=== PATIENT | male | born 1990 | race Caucasian/White ===

== ENCOUNTER 2021-06-19 17:49 | Emergency (ER) | payer BC, SELFPAY ==
--- NOTE | ~2021-06-19 | XR_ITS ---
EXAMINATION: XR abdomen/kub 1V DATE: 06/19/2021 19:59 INDICATION: 2 days of abdominal pain. TECHNIQUE: A supine view of the abdomen on 2 radiographs was obtained. COMPARISON: None. FINDINGS: Small to moderate amount of gas scattered throughout the normal-appearing colon. No dilated gas-fille d loops of bowel to suggest obstruction. No organomegaly or suspicious calcifications right-sided hyp oplastic riblet at T12. In the abdomen or pelvis. Visualized portions of the lung bases are clear. IMPRESSION: 1. Normal bowel gas pattern. Reviewed, dictated and finalized at location A.
[2021-06-19 18:21] VITALS: BP 135/89; PULSE 94; RESP 18; TEMP 36.8; O2SAT 99
[2021-06-19 18:43] LABS: Basophils Absolute Auto 0.1 K/mm3 (0.0-0.1); Basophils Percent Auto 0.6 % (0.2-1.2); Eosinophils Absolute Auto 0.1 K/mm3 (0-0.3); Eosinophils Percent Auto 1.4 % (0-4.4); Hemoglobin 16.2 g/dL (14.0-18.0); Immature Granulocyte Absolute 0.04 K/mm3 (0.00-0.031); Immature Granulocyte Percent A 0.5 % (0-0.5); Lymphocytes Absolute Auto 1.75 K/mm3 (0.9-3.2); Lymphocytes Percent Auto 20.6 % (18.3-44.2); Mean Corpuscular HGB Conc 34.5 g/dl (32-36); Mean Corpuscular Hemoglobin 31.8 pg (26-34); Mean Corpuscular Volume 92.3 fl (80-100); Monocytes Absolute Auto 0.6 K/mm3 (0.1-0.6); Monocytes Percent Auto 6.8 % (2.6-8.5); Neutrophils Absolute Auto 5.9 K/mm3 (1.3-6.7); Neutrophils Percent Auto 70.1 % (45.5-73.1); Platelet Count Result 275 k/mm3 (150-375); Red Blood Count 5.09 M/mm3 (4.6-6.20); Red Cell Distribution Width 12.1 % (11.5-14.5); White Blood Count 8.5 K/mm3 (4.5-10.0)
[2021-06-19 18:53] LABS: Add Urine Microscopic? YES; Appearance Urine Clear (Clear); Bilirubin Urine Negative (Negative); Blood Urine Negative (Negative); Color Urine Amber (Yellow); Glucose Urine UA Negative (Negative); Ketones Urine 1+ mg/dL (Negative); Leukocyte Esterase Ur Negative LEU/UL (Negative); Mucus Urine Heavy /lpf; Nitrate Urine Negative (Negative); Protein Urine 2+ mg/dL (Negative); WBC Urine 0-3 /hpf
[2021-06-19 18:55] LABS: Alanine Aminotransferase 43 U/L (4-50); Alkaline Phosphatase 82 U/L (38-126); Anion Gap 11 mmol/L (8-16); Aspartate Amino Transferase 73 U/L (17-59); Bilirubin,Total 0.7 mg/dL (0.2-1.3); Blood Urea Nitrogen 11 mg/dL (9-20); Calcium 9.4 mg/dL (8.4-10.2); Carbon Dioxide 23 mmol/L (22-30); Chloride 107 mmol/L (98-107); Estimated CRCL calculation 105 ml/min; Estimated Glomerular Filt Rate > 60; Glucose 90 mg/dL (65-110); Lipase 38 U/L (23-300); Potassium 4.1 mmol/L (3.4-5.0); Sodium 141 mmol/L (137-145)
[2021-06-19 19:00] LABS: Specific Grav Ur 1.033 (1.001-1.035)
[2021-06-19 19:28] VITALS: BP 126/88; PULSE 78; RESP 18; O2SAT 98
--- NOTE | 2021-06-19 20:45 | ED.ABDPAIN ---
HPI - Abdominal Pain General Chief Complaint: Abdominal Pain Stated Complaint: ABD PAIN Time Seen by Provider: 06/19/21 19:20 Source: patient Mode of arrival: ambulatory Limitations: no limitations History of Present Illness HPI narrative: Patient presents with chief complaint of pain to the lower abdominal area that he noticed after lifting weights at the gym 2 days ago. Patient states that he noticed that the pain presents when he is bearing down such as trying to have a bowel movement, coughing or laughing. Patient states he has had an inguinal hernia in the past on the left side lower than the area of discomfort at this time. He denies any fevers, constant pain, vomiting. He denies any constipation or blood or mucus in his stool. Related Data Home Medications Medication Instructions Recorded Confirmed Adults Multivitamin 06/19/21 06/19/21 atorvastatin 40 mg PO DAILY 06/19/21 trazodone 50 mg PO HS 06/19/21 Allergies Allergy/AdvReac Type Severity Reaction Status Date / Time No Known Allergies Allergy Unknown Verified 06/19/21 19:33 Review of Systems Review of Systems: CONSTITUTIONAL: Denies fever, chills, or sweats. EYES: Denies visual changes, redness, or discharge. ENT: Denies rhinorrhea, congestion, sore throat, or otalgia. CARDIOVASCULAR: Denies chest pain, palpitations, or edema. RESPIRATORY: Denies cough or dyspnea. GASTROINTESTINAL: Reports intermittent abdominal pain denies nausea, vomiting, or diarrhea. GENITOURINARY: Denies dysuria or hematuria. SKIN: Denies rash or itching. MUSCULOSKELETAL: Denies back pain, joint pain, or myalgia. NEUROLOGIC: Denies headache, numbness, dizziness, or weakness. PSYCHIATRIC: Denies anxiety or depression. Exam Narrative: GENERAL: Well-appearing, well-nourished, and in no acute distress. HEAD: Normocephalic, atraumatic. EYES: PERRLA and EOMI. CHEST: Clear to auscultation. No respiratory distress. No wheezes rales or rhonchi HEART: Regular rate and rhythm. No murmur heard. Normal peripheral pulses. ABDOMEN: Soft, tender with deep palpation below umbilicus, nondistended, normal active bowel sounds. EXTREMITIES: Normal range of motion. No edema. SKIN: Warm, dry, no rash. NEURO: No focal deficits. Alert and oriented x3. PSYCH: Normal mood and affect. Course Vital Signs Vital signs: Vital Signs Temperature 98.3 F 06/19/21 18:21 Pulse Rate 94 06/19/21 18:21 Respiratory Rate 18 06/19/21 18:21 Blood Pressure 135/89 06/19/21 18:21 Pulse Oximetry 99 06/19/21 18:21 Temperature 98.3 F 06/19/21 18:21 Pulse Rate 78 06/19/21 19:28 Respiratory Rate 18 06/19/21 19:28 Blood Pressure 126/88 06/19/21 19:28 Pulse Oximetry 98 06/19/21 19:28 MDM - Abdominal Pain MDM Narrative Medical decision making narrative: Cussed with patient that he show signs of having abdominal wall hernia. Patient instructed that he needs to soften his stools to avoid straining. Patient needs to avoid heavy lifting and other activities prescription for pressure on the abdominal core. Patient states that he may use a abdominal support belt if he finds it comforting. Patient instructed to follow-up with his primary care for further investigation into his symptoms. He is instructed to return to emergency department immediately if he has any signs of incarcerated hernia or any other emergent symptoms. Patient has been able to eat and drink without vomiting. He has not had nausea or mucus in the stools. Patient is hemodynamically stable and labs are appropriate. KUB does not show any signs of bowel obstruction. Differential Diagnosis Differential diagnosis: Likely abdominal pain, acute appendicitis, calculus of kidney, constipation, diverticulitis, endometriosis, gastroenteritis, pancreatitis and small bowel obstruction Lab Data Result diagrams: 06/19/21 18:32 06/19/21 18:32 Labs: Lab Results 06/19/21 06/19/21 06/19/21 Range/Units 18:32
[2021-06-19 21:06] VITALS: BP 115/74; PULSE 79; RESP 16; TEMP 37; O2SAT 94
== END 2021-06-19 21:08 | disposition home or self-care (01) ==
PROVIDERS: Emergency Medicine; Emergency Provider Emergency Medicine; PCP Internal Medicine
DX: K43.9 Ventral hernia without obstruction or gangrene (principal); S39.011A Strain of muscle, fascia and tendon of abdomen, initial encounter; X50.0XXA Overexertion from strenuous movement or load, initial encounter; Y93.B3 Activity, free weights
CPT/HCPCS: 36415; 74018; 80053; 81001; 83690; 85025; 99283

== ENCOUNTER 2021-12-18 14:31 | Emergency (ER) | payer BC, SELFPAY ==
--- NOTE | ~2021-12-18 | XR_ITS ---
EXAMINATION: XR chest 2V 12/18/2021 15:19 INDICATION: Cough and congestion with sore throat PROCEDURE: 2 view chest COMPARISON: No prior studies for comparison. FINDINGS: The lungs are clear. There is mild hyperinflation. The cardiomediastinal silhouette is with in normal limits. There are no pleural effusions. There is no pneumothorax suspected. IMPRESSION: 1: NO ACUTE CARDIOPULMONARY DISEASE. Reviewed, dictated and finalized at location A.
[2021-12-18 14:51] VITALS: BP 130/86; PULSE 74; RESP 16; TEMP 36.6; O2SAT 97
--- NOTE | 2021-12-18 15:50 | ED.URI ---
HPI - URI/Sore Throat General Chief Complaint: Upper Respiratory Infection Stated Complaint: cough, congestion Time Seen by Provider: 12/18/21 15:25 History of Present Illness HPI Narrative: 31 y/o male presents to the ER today for worsening cough and chest congestion over the past week. He started a z pack on Wednesday but symptoms did not improve. He says cough is productive. He is bringing up brownish phlegm. He has some mild nasal congestion and sore throat. He has not had any fever. He is not short of breath but gets into coughing fits with exertion. He has wheezing. No vomiting diarrhea. No significant medical history. Related Data Home Medications Medication Instructions Recorded Confirmed Adults Multivitamin 06/19/21 06/19/21 atorvastatin 40 mg PO DAILY 06/19/21 trazodone 50 mg PO HS 06/19/21 tacrolimus TOPICAL 12/18/21 12/18/21 Allergies Allergy/AdvReac Type Severity Reaction Status Date / Time No Known Allergies Allergy Unknown Verified 12/18/21 14:50 Review of Systems Constitutional: Constitutional: Denies chills, Denies fatigue, Denies fever(s) and Denies weakness Eyes: Eyes: Reports no additional eye complaints and Denies change in vision ENT: Denies dizziness, Reports nasal congestion and Reports sore throat Cardiovascular: Cardiovascular: Denies chest pain Respiratory: Respiratory: Reports chest congestion, Reports cough, Denies dyspnea and Reports wheezing Gastrointestinal: Gastrointestinal: Denies diarrhea, Denies nausea and Denies vomiting Genitourinary: Genitourinary: Reports no additional male genitourinary complaints Musculoskeletal: Musculoskeletal: Denies myalgias and Denies arthralgias Integumentary/Breasts: Skin/Breast: Denies rash Neurologic: Reports system reviewed and no additional complaints, except as documented Psychiatric: Psychiatric: Reports no additional psychiatric complaints Endocrine: Endocrine: Reports no additional endocrine complaints Hematologic/Lymphatic: Hematologic/Lymphatic: Reports no additional hematologic/lymphatic complaints Allergic/Immunologic: Allergic/Immunologic: Reports no additional allergic/immunologic complaints Exam Const: General: healthy appearing and no acute distress Orientation/consciousness: patient oriented x3 HENMT: Head: normal to inspection Eyes: Conjunctivae: conjunctivae normal Neck: Neck: normal visual inspection Chest: Chest palpation & inspection: normal inspection of the chest Resp: Effort & Inspection: normal respiratory effort and not labored Auscultation: wheezes expiratory wheezes and throughout Cardio: Rate: regular rate Rhythm: regular rhythm GI: GI Palp: Yes Soft to palpation, No Tenderness to palpation present (GI) and No Guarding due to palpation present (GI) Auscultation: normal bowel sounds Skin: General skin exam: normal color Rashes: rash noted Neuro: General: patient oriented x3, moves all extremities and no meningeal signs Extrem: General: normal to inspection Psych: Mental Status: mental status grossly normal Affect: normal affect Attitude: cooperative Course Reevaluation(s) Reevaluation #1: wheezing improved after neb treatment Date: 12/18/21 Time: 16:50 Vital Signs Vital signs: Vital Signs Temperature 36.6 C 12/18/21 14:51 Pulse Rate 74 12/18/21 14:51 Respiratory Rate 16 12/18/21 14:51 Blood Pressure 130/86 12/18/21 14:51 Pulse Oximetry 97 12/18/21 14:51 Temperature 36.6 C 12/18/21 14:51 Pulse Rate 74 12/18/21 14:51 Respiratory Rate 16 12/18/21 14:51 Blood Pressure 130/86 12/18/21 14:51 Pulse Oximetry 97 12/18/21 14:51 MDM - URI/Sore Throat Imaging Data Radiologist's impression: CXR - no pneumonia Discharge Plan Discharge Clinical Impression: Acute bronchitis Qualifiers: Bronchitis organism: unspecified organism Qualified Code(s): J20.9 - Acute bronchitis, unspecified Patient Disposition: Home, Self-Care Condition: Stable I
[2021-12-18] MEDS: predniSONE 20 MG TABLET 60 MG PO (15:58)
[2021-12-18] MEDS: IPRATROPIUM BR 0.02% INH SOLN 0.5 MG/2.5 ML VIAL INHALATION (16:00)
[2021-12-18] MEDS: ALBUTEROL SULFATE NEB 2.5 MG/0.5 ML INH 5 MG INHALATION (16:01)
[2021-12-18 17:28] VITALS: BP 130/84; PULSE 87; RESP 16; O2SAT 98
== END 2021-12-18 17:28 | disposition home or self-care (01) ==
PROVIDERS: Emergency Provider Nurse Practitioner Family; PCP Internal Medicine
DX: J20.9 Acute bronchitis, unspecified (principal)
CPT/HCPCS: 71046; 94640; 99283; J7512

== ENCOUNTER 2024-10-22 16:27 | Emergency (ER) | payer BC, SELFPAY ==
--- NOTE | ~2024-10-22 | XR_ITS ---
EXAMINATION: XR chest 2V Exam Date/Time: 10/22/2024 17:00 [facility] HISTORY: chest pain Comparison: 12/18/2021. RESULT: Lines, tubes, and devices: None. Lungs and pleura: Clear. Cardiomediastinal silhouette: Stable. Other: No acute osseous or upper abdominal finding. IMPRESSION: No acute cardiopulmonary process. Reviewed, dictated and finalized at location [facility]
--- NOTE | 2024-10-22 16:29 | ECG_ITS ---
Test Date: 2024-10-22 16:34:26 Measurements Intervals [place] Rate: 69 P: 61 MA: 137 QRS: -37 QRSD: 102 T: 46 QT: 366 QTc: 394 Interpretive Statements SINUS RHYTHM MARKED LEFT AXIS DEVIATION [QRS AXIS < -30] No previous ECG available for comparison Electronically Signed On 10-22-2024 22:01:01 TIE TAPE MACHINE OPERATOR by Jeyson Donnelly M.D.
--- OUTSIDE RECORDS SUMMARY | 2024-10-22 16:29 | XMS_ITS | Clinical Summary ---
Author Organization [facility] Address [address] [place] [address] Care Team Providers Care Flour Blender Name Role Phone Unavailable Primary Care Provider Unavailabl e Source Comments [facility],non-owned Affiliates and Associated Physician Practices is amultiple site organization consisting of ambulatory clinics and hospital sitesin [place], [place] and [place]. This disclosure is being madepursuant to the Care Everywhere program and may not contain all information available regarding this patient. Last updated 18.[facility] Social History Tobacco Use Types Packs/Day Years Used Date Smoking Tobacco: Never Assessed Sex and Gender Information Value Date Recorded Sex Assigned at Not on file Gender Identity Not on file Sexual Orientation Not on file Plan of Treatment Health Maintenance Due Date Last Done Comments HIV SCREENING 2003 HEPATITIS C SCREENING 03/28/2006 DTAP/TDAP/TD VACCINES (1 - Tdap) 2007 HEPATITIS B VACCINE (1 of 3 - 19+ 3-dose series) 2007 COVID-19 VACCINE ( - 2023-2 5 season) 2024 INFLUENZA VACCINE (#1) 2024 DEPRESSION SCREENING 09/27/2024 ZOSTER VACCINE (1 of 2) 2038 HIB VACCINE Aged Out No longer eligi ble based on patient's age to complete this topic HPV VACCINE Aged Out No longer eligi ble based on patient's age to complete this topic MENINGOCOCCAL (Group B) VACCINE Aged Out No longer eligible based on patient's age to complete this topic MENINGOCOCCAL VACCINE Aged Out No teresita lance eligible based on patient's age to complete this topic PNEUMOCOCCAL VACCINE Aged Out No long er eligible based on patient's age to complete this topic
--- OUTSIDE RECORDS SUMMARY | 2024-10-22 16:29 | XMS_ITS | Referral Summary ---
Author Organization [facility] Address [address] [place] [address] Care Team Providers Care Glue Maker Bone Name Role Phone Unavailable Primary Care Provider Unavailabl e Source Comments [facility],non-owned Affiliates and Associated Physician Practices is amultiple site organization consisting of ambulatory clinics and hospital sitesin [place], [place], [place] and [place]. This disclosure is being madepursuant to the Care Everywhere program and may not contain all information available regarding this patient. Last updated 18.[facility] Social History Tobacco Use Types Packs/Day Years Used Date Smoking Tobacco: Never Assessed Sex and Gender Information Value Date Recorded Sex Assigned at Not on file Gender Identity Not on file Sexual Orientation Not on file Plan of Treatment Not on file
--- OUTSIDE RECORDS SUMMARY | 2024-10-22 16:29 | XMS_ITS | Continuity of Care Document ---
Author Organization [facility] Address [address] [place] [address] Phone Care Team Providers Care Appeals Writer Name Role Phone Conversion MD, Doctor Unavailable Unavailabl e Medications Medication Instructions Dosage Effective Dates (start - stop) Status Comments ALBUTEROL 90MCG PUFFS 2 Q 4HR - Acti ve ALBUTEROL 90MCG PUFFS 2 Q 4HR - Acti ve Advance Directives Directive Yes / No Effective Date File Name No Information Encounters Encounter Description Practice Location Reason(s) For Visit Diagnoses Date Provider Providers Copied on Encounter [facility], [address], [place], [place], [id number], tel:[phone] Conversion Department No Information 4201 1 Conversion Doctor. [address] [place] [address], [facility], . [facility], [address], [place], [place], [id number], tel:[phone] [facility] NOS [phone] Conversion Doctor. [address] [place] [address], [facility], . Family History Family Member Type Diagnosis Age At Onset No Information Immunizations Vaccine Date Status Comments 78679 - Hepatitis_B administered Source: Source Unspecified 24930 - Hepatitis_B administered Source: Source Unspecified Payers Payer name Insurance type Covered green party ID Authoriza tion(s) No Information Social History Type Description Quantity Date Captured Comments Sex Male Smoking Status No Information Chief Complaint And Reason For Visit No Information Reason For Referral Reason For Referral No Information History Of Present Illness Encounter Date Complaint History Of Prese nt Illness No Information Functional Status Date Functional Assessmen t No Information Instructions Date Instruction Additional Infor mation No Information Assessments Type Assessment Date No Information Patient Care Teams Name Effective Dates (start - stop) Status Members No Information
--- OUTSIDE RECORDS SUMMARY | 2024-10-22 16:29 | XMS_ITS | Data Portability ---
Author Organization [place] [facility] [place], Main Office Address [address] [place] [address] Care Team Providers Care [employer]o [employer] Founder Name Role Phone THEODORE SIDDIQUI Primary Care Provider THEODORE SIDDIQUI Referring Provider Assessment Encounter Date Assessment Date Assessment LastModified by Organization Details LastModified Time 09/07/2023 09/07/2023 03/10/2023: LDL 108 Not available 09/05/2023 18:40:01 03/14/2024 03/14/2024 03/10/2023: LDL 108 09/18/2024: [facility], not sent when done by [facility] so reviewed 03/14/2024 Gluc 104 Not available 03/14/2024 10:36:47 Plan of Treatment Reminders Order Date Submit Date Provider Last Modified By Organization Details Last Modified Time Details Appointments None recorded. Lab vitamin D, 25-hydroxy, total, serum 2022 023 [facility] (Lab), [address] [place], [address], 3 11:46:28 lipid panel, serum 2022 023 [facility] (Lab), [address] [place], [address], 3 11:46:27 CBC w/ auto diff 2022 023 [facility] (Lab), [address] [place], [address], 3 11:46:27 CMP, serum or plasma 2022 023 [facility] (Lab), [address] [place], [address], 3 11:46:27 TSH, serum or plasma 2022 023 [facility] (Lab), [address] [place], [address], 3 11:46:27 vitamin D, 25-hydroxy, total, serum 2022 023 [email or web address] [address] [place] [address] (Lab), [address] [place], [address], 4 10:36:28 lipid panel, serum [address] (Lab), [address] [place], [address], 4 10:36:28 CBC w/ auto diff [address] [facility] [address] [place] [address] (Lab), [address] [place], [address], 4 10:36:28 CMP, serum or plasma [email or web address] (Lab), [address] [place], [address], 4 10:36:28 TSH, serum or plasma [address] (Lab), [address] [place], [address], 4 10:36:28 glycohemogl obin, total, blood [email or web address] (Lab), [address] [place], [address], 4 09:47:58 microalbumi n, urine [address] (Lab), [address] [place], [address], 4 09:47:58 vitamin D, 25-hydroxy, total, serum [address] (Lab), [address] [place], [address], 4 09:51:19 rapid strep group A, throat [address] [facility], [address] [place], [address], 4 08:53:19 rapid flu (A+B) [address] [facility], [address] [place], [address], 4 08:53:19 SARS CoV 2 RNA (COVID-19), QL, sales market leader-PCR, respiratory specimen [address] [facility], [address] [place], [address], 4 08:53:19 lipid panel, serum [address] (Lab), [address] [place], [address], 4 09:51:19 CBC w/ auto diff [address] (Lab), [address] [place], [address], 4 09:51:19 CMP, serum or plasma 2023 024 [email or web address] 6 [facility] (Lab), [address] [place], [address], 4 09:51:19 TSH, serum or plasma 2023 024 [email or web address] 6 [facility] (Lab), [address] [place], [address], 4 09:51:[address] referral 2022 023 [email or web address] José Joy MD, [address] [place] [address], [address], 4 10:20:[address] referral 2022 023 [email or web address] 6 José Joy MD, [address] [place] [address], [address], 4 09:03:[address] referral 2023 024 [email or web address] José Joy MD, [address] [place] [address], [address], 4 16:54:01 Procedures None recorded. Surgeries None recorded. Imaging None recorded. Medication Orders tacrolimus 0.1 % topical ointment 2022 023 [facility], [address] [place], [address], 3 09:28:31 tacrolimus 0.1 % topical ointment 2022 023 [facility], [address] [place], [address], 3 09:28:17 amoxicillin 875 mg-david morales clavulanate 125 mg tablet 2023 024 [facility], [address] [facility], [place], [address], 10:14:43 Patient TargetsNo targets recorded. Patient InstructionsNo instructions recorded. Reason for Referral [employer] Referral for E ruption Referring Physician: Theodore Siddiqui, Internal Medicine, Encounter Date: 03/10/2023 [employer] Referral for E ruption Referring Physician: Theodore Siddiqui Internal Medicine, Encounter Date: 09/07/2023 [employer] Referral for E ruption Referring Physician: Theodore Siddiqui, Internal Medicine, Encounter Date: 03/14/2024 Results Created Date Observation Date Name Description Value Unit Range Abnormal Flag Note LastModifiedBy Organization Detail LastModifiedTime 03/14/20 24 03/14/2024 RAPID STREP A DNA strep A DNA, FRANCHESCA NEGATI VE negati ve Not Available [facility] (Lab) [address] [place], [address], 03/14/2024 12:13:29 03/14/20 24 03/14/2024 COVID -19, INFLU FELIX A+B, PCR sars-cov-2 RNA(covid19) ,RT-PCR NEGATI VE This test has been autho rized by the FDA under an Emerg ency Use Autho rizat ion (EUA) for use by autho rized labor atori es. Negat juana resul ts do not precl ude SARS- CoV-2 and shoul d not be used as the sole basis for treat ment or other patie nt manag ement decis ions. Test resul ts shoul d be corre lated with the clini vijay histo ry, epide miolo gical data, and other data avail able to the clini debbie evalu ating the patie nt. Gisela e gayathri w the Fact Sheet s for healt h care provi ders and patie nts at the [facility] simone: https ://ww w.fda .gov/ media /0449 12/do wnloa d https ://ww w.fda .gov/ media /7298 13/do wnloa d Garett liu y: Real- Time RT-PC R Not Available [facility] (Lab) [address] [facility] [place], [address], 03/14/2024 12:21:52 03/14/20 24 03/14/2024 COVID -19, INFLU FELIX A+B, PCR influenza A RNA, RT-PCR NEGATI VE Not Available [facility] (Lab) [address] [place], [address], 03/14/2024 12:21:52 03/14/20 24 03/14/2024 COVID -19, INFLU FELIX A+B, PCR influenza B RNA, RT-PCR NEGATI VE Not Available [facility] (Lab) [address] [place], [address], 03/14/2024 12:21:52 07/21/20 22 XR, hand, 3 or more view No observ ation record ed. [id number] [facility] [place] [address], [place], [address], 11/25/2022 05:04:24 Result Notes None recorded. Problems Name Problem SNOMED Code Status Onset Date Resolution Date Notes Provider Name and Address Organization Details Recorded Time Hyperlipid emia 82122866 Active 2022 Theodore baker MD [address], [place], [address] , [employer] 3 09:10:34 Eruption 711409119 Active 2022 Theodore baker MD [address], [place], [address] , [employer] 3 09:10:39 Abdominal pain 07112904 Active 2022 Theodore baker MD [address], [place], [address] , [facility] 3 09:10:50 Erectile dysfunctio n 960789913 Active 2022 Theodore baker MD [address], [place], [address] , [facility] 3 09:10:58 External hemorrhoid s 30725381 Active 2022 Theodore baker MD [address], [place], [address] , [facility] 3 09:11:18 Persistent insomnia 338302862 Active 2022 Theodore baker MD [address], [place], [address] , [facility] 3 09:11:58 Pain of right wrist 6995795417362 00 Active 2022 MD Chava Martin [address], [place], [address] , [facility] 3 09:12:13 Upper respirator y infection 57655504 Active 2023 MD Chava Martin [address], [place], [address] , [facility] 4 10:13:13 Obesity 732555205 Active 2023 MD Chava Martin [address], [place], [address] , [facility] 4 10:14:33 Hyperglyce ashley 60098707 Active 2023 MD [address]ava Martin [address], [place], [address] , [facility] 4 10:16:18 Cough 07910908 Active 2023 Angie Jain CMA null, [place] [facility] 4 14:09:54 Diabetes mellitus 80179266 Active 2024 Radha Newberry RMA null, [place] [facility] 5 14:44:21 Acute sinusitis 46458547 Active 2021 Not Available [facility] 3 04:53:12 Pain in throat 181327202 Active 2021 Not Available [facility] 3 04:53:12 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 Procedures Surgical History Date Name Laterality Status Provider Name and Address Organization Details Recorded Time Hernia Repair completed Not Available [facility] 11/25/2022 04:43:40 other completed Not Available [facility] 09/2022 04:43:40 Imaging Results Imaging Date Name Status LastModified by Organiz ation Details LastModified Time 07/21/2022 XR, hand, 3 or more view completed [id number] [facility] [place] [address], [place], [address], 11/25/2022 05:04:24 Procedure Notes None recorded. Medical Equipment None Reported. Allergies No known drug allergies Medications Name Sig Start Date Stop Date Status Note LastModified by Organization Details LastModified Time binaxnow cov kit home [place] 03/10 completed Not Available Not Available Not Available quetiapine 25 mg tablet TK 1 T PO QHS ALONG WITH A 50MG T active Not Available Not Available No t Available amoxicillin 500 mg capsule TAKE 1 CAPSULE BY MOUTH THREE TIMES DAILY 07/07 completed Not Available Not Available Not Available fluconazole 100 mg tablet TAKE 1 TABLET BY MOUTH ON DAY 3 OF ANTIBIOTI C active Not Available Not Available No t Available atorvastati n 40 mg tablet TAKE 1 TABLET BY MOUTH ONCE DAILY IN THE EVENING active Not Available Not Available No t Available prednisone 10 mg tablet TAKE 4 TABLETS BY MOUTH EACH MORNING FOR 5 DAYS, THEN 2 TABS EACH MORNING FOR 5 DAYS, THEN ONE TAB EACH MORNING FOR 5 DAYS 07/07 completed Not Available Not Available Not Available doxycycline hyclate 100 mg capsule 10/21 completed Not Available Not Available Not Available clindamycin HCl 300 mg capsule TAKE 1 CAPSULE BY MOUTH EVERY 8 HOURS FOR 7 DAYS 03/14 completed Not Available Not Available Not Available trazodone 50 mg tablet TAKE 1 TABLET BY MOUTH ONCE DAILY NEEDED. NO ALCOHOL, DRIVING OR WITH SEDATING MEDS. active Not Available Not Available No t Available sildenafil 50 mg tablet TAKE 1 TABLET BY MOUTH TWICE A WEEK NEEDED HALF AN HOUR PRIOR TO SEX. IF ERECTION LASTS MORE THAN 2 HOURS GO TO THE ER 2023 active Not Available Not Available Not Avai lable azithromyci n 250 mg tablet TAKE 2 TABLETS BY MOUTH ON DAY 1, AND THEN TAKE 1 TABLET BY MOUTH ONCE A DAY ON DAY 2 THROUGH DAY 5 active Not Available Not Available No t Available benzonatate 200 mg capsule TAKE 1 CAPSULE BY MOUTH THREE TIMES DAILY NEEDED FOR COUGH 07/07 completed Not Available Not Available Not Available minocycline 100 mg capsule TAKE 1 CAPSULE BY MOUTH TWICE DAILY 07/07 completed Not Available Not Available Not Available fluconazole 200 mg tablet TAKE 1 TABLET ON DAY 3 OF ANTIBIOTI CS, THEN THE OTHER ON DAY 7 active Not Available Not Available No t Available prednisone 20 mg tablet TAKE 2 TABLETS BY MOUTH ONCE DAILY 07/07 completed Not Available Not Available Not Available sulfamethox azole 800 mg-trimetho prim 160 mg tablet TAKE 1 TABLET BY MOUTH TWICE DAILY active Not Available Not Available No t Available tramadol 50 mg tablet 11/05 completed Not Available Not Available Not Available oxycodone-a cetaminophe n 5 mg-325 mg tablet 11/05 completed Not Available Not Available Not Available tacrolimus 0.1 % topical ointment RUB IN WELL TWICE DAILY NEEDED active Not Available Not Available No t Available nystatin-tr iamcinolone 100,000 unit/g-0.1 % topical cream APPLY TO THE AFFECTED AREA (S) BY TOPICAL ROUTE 2 TIMES PER DAY IN THE MORNING AND EVENING. 07/07 completed Not Available Not Available Not Available mupirocin 2 % topical ointment APPLY OINTMENT TO EACH NOSTRIL BID active Not Available Not Available No t Available zolpidem 5 mg tablet TAKE 1 TABLET BY MOUTH ONCE DAILY NEEDED 11/09 completed Not Available Not Available Not Available ergocalcife rol (vitamin D2) 1,250 mcg (50,000 unit) capsule Take 1 capsule by mouth once a week 09/07 completed Not Available Not Available Not Available albuterol sulfate HFA 90 mcg/actuati on aerosol inhaler INHALE 2 PUFFS BY MOUTH EVERY 4 HOURS NEEDED FOR SHORTNESS OF BREATH FOR WHEEZING 03/10 completed Not Available Not Available Not Available clotrimazol e 1 % topical cream APPLY TOPICALLY TO THE AFFECTED AREA(S) EVERY 12 HOURS 03/14 completed Not Available Not Available Not Available naproxen 500 mg tablet TAKE 1 TABLET BY MOUTH TWICE DAILY WITH FOOD 03/14 completed Not Available Not Available Not Available amoxicillin 875 mg-potassiu m clavulanate 125 mg tablet TAKE 1 TABLET BY MOUTH EVERY 12 HOURS FOR 7 DAYS active Not Available Not Available No t Available Benadryl Allergy 25 mg tablet Take 1 tablet every day by oral route at bedtime. 07/01 completed Not Available Not Available Not Available Pneumovax-2 3 25 mcg/0.5 mL injection syringe PHARMACIS T ADMINISTE RED IMMUNIZAT ION ADMINISTE RED AT TIME OF DISPENSIN G active Not Available Not Available No t Available Vitamin D active Not Available Not Kourtney ilable Not Available fiber TK 1T PO QD 07/21 completed Not Available Not Available Not Available quetiapine 50 mg tablet TK 1 T PO QHS active Not Available Not Available No t Available Adacel (Tdap Adolesn/Johnny lt)(PF)2 Lf-(2.5-5-3 -5)-5 Lf/0.5 mL IM syringe PHARMACIS T ADMINISTE RED IMMUNIZAT ION ADMINISTE RED AT TIME OF DISPENSIN G active Not Available Not Available No t Available melatonin 10 mg tablet Take 1 tablet every day by oral route at bedtime. 03/10 completed Not Available Not Available Not Available Fluzone Quad (PF) 60 mcg (15 mcg x 4)/0.5 mL IM syringe PHARMACIS T ADMINISTE RED IMMUNIZAT ION ADMINISTE RED AT TIME OF DISPENSIN G active Not Available Not Available No t Available BinaxNOW COVID-19 Ag Self Test kit Use as Directed on the Package 03/10 completed Not Available Not Available Not Available Vitals Date Recorded Body mass index (BMI) Body height Heart rate Body temperature Body weight Systolic blood pressure Diastolic blood pressure Provider Name and Address Organization Details Last Updated DateTime 2 35.8 kg/m2 165.1 cm 78 /min 97.8 [degF] 31800.3 6 g 122 mm[Hg] 64 mm[Hg] Not Available [employer] 3 04:51:48 Date Recorded Body mass index (BMI) Body height Body weight Provider Name and Address Organization Details Last Updated DateTime 07/21/2022 35.8 kg/m2 165.1 cm 54401.36 g Not Available [employer] 11/25/2022 04:51:50 Date Recorded Body height Body mass index (BMI) Body weight Body temperature Heart rate Systolic blood pressure Diastolic blood pressure Provider Name and Address Organization Details Last Updated DateTime 3 165.1 cm 37.1 kg/m2 679026. 1 g 97.2 [degF] 72 /min 124 mm[Hg] 70 mm[Hg] PERCY Bourgeois [place] [facility] 3 09:10:06 Date Recorded Body height Body mass index (BMI) Body weight Body temperature Heart rate Systolic blood pressure Diastolic blood pressure Provider Name and Address Organization Details Last Updated DateTime 3 165.1 cm 37.9 kg/m2 343376. 06 g 97.7 [degF] 60 /min 118 mm[Hg] 80 mm[Hg] PERCY Bourgeois [facility] [employer] [facility] 3 09:19:22 Date Recorded Body height Body mass index (BMI) Body weight Body temperature Heart rate Systolic blood pressure Diastolic blood pressure Provider Name and Address Organization Details Last Updated DateTime 4 165.1 cm 38.1 kg/m2 259561. 65 g 97.6 [degF] 66 /min 124 mm[Hg] 76 mm[Hg] PERCY Bourgeois [facility] [employer] [facility] 4 09:39:45 Social History Question Answer Notes LastModified by Organization Details LastModified Time Tobacco Smoking Status Former Smoker quit 2021 MARLI Landers [facility] [employer] [facility] 09/07/2023 09:11:32 Do You Have An Advance Directive? No [id number] Information not available 11/25/2022 What Is Your Level Of Alcohol Consumption? None Quit February 2014 [id number] Information not available 11/25/2022 What Is Your Level Of Caffeine Consumption? Heavy Caffeine Supplement [id number] Information not available 11/25/2022 How Much Tobacco Do You Chew? None [id number] Information not available 11/25/2022 In The 14 Days Before Symptom Onset, Have You Had Close Contact With A Laboratory-conf irmed COVID-19 While That Case Was Ill? No [email or web address] Information not available 09/07/2023 In The 14 Days Before Symptom Onset, Have You Had Close Contact With A Person Who Is Under Investigation For COVID-19 While That Person Was Ill? No [email or web address] Information not available 09/07/2023 What Type Of Diet Are You Following? REGULAR [id number] Information not available 11/25/2022 Do You Or Have You Ever Used E-cigarettes Or Vape? Never Used Electronic Cigarettes [email or web address] Information not available 09/07/2023 What Is The Highest Grade Or Level Of School You Have Completed Or The Highest Degree You Have Received? [id number] [email or web address] Information not available 09/07/2023 What Is Your Occupation? Nancy [email or web address] Information not available 09/07/2023 Have There Been Any Changes To Your Family Or Social Situation? No [email or web address] Information not available 09/07/2023 When Did You Quit Smoking? 1-5yearssincelastc igarette Information not available 03/14/2024 Are There Any Guns Present In Your Home? No [email or web address] Information not available 09/07/2023 Do You Use Insect Repellent Routinely? No [email or web address] Information not available 09/07/2023 Where Do You Live? SingleLevelHouse [email or web address] Information not available 09/07/2023 Do You Have A Medical Power Of House Director? No [email or web address] Information not available 09/07/2023 What Was The Date Of Your Most Recent Tobacco Screening? 03/14/2024 Information not available 03/14/2024 Do You Have Any Pets? Yes [email or web address] Information not available 09/07/2023 What Is Your Relationship Status? Domestic Partner [id number] Information not available 11/25/2022 Do You Have Smoke And Carbon Monoxide Detectors In Your Home? Yes [email or web address] Information not available 09/07/2023 Are You Passively Exposed To Smoke? No [email or web address] Information not available 09/07/2023 Are There Any Smokers In Your House? No [email or web address] Information not available 09/07/2023 How Much Tobacco Do You Smoke? No [id number] Information not available 11/25/2022 Do You Feel Stressed (tense, Restless, Nervous, Or Anxious, Or Unable To Sleep At Night)? [id number] [email or web address] Information not available 09/07/2023 Do You Use Any Illicit Or Recreational Drugs? No [email or web address] Information not available 09/07/2023 Do You Use Sunscreen Routinely? No [email or web address] Information not available 09/07/2023 Have You Recently Traveled Abroad? No [email or web address] Information not available 09/07/2023 Do You Have Any Dietary Restrictions? No [email or web address] Information not available 09/07/2023 Do You Or Have You Ever Used Any Other Forms Of Tobacco Or Nicotine? No [email or web address] Information not available 09/07/2023 Sex: Male Functional Status Question Answer Note LastModified by Organizat ion Details LastModified Time What is your exercise level? Occasional [id number] Information not available 11/25/2022 Mental Status None recorded. Family History Relationship Description Onset Age of this Age Resolved Age Notes LastModified by Organization Details LastModified Time Mother Malignant neoplasm of female breast 49 [email or web address] Not available 03/14 09:31:19 Maternal Grandfather Malignant neoplasm of female breast [email or web address] Not available 03/14 09:31:19 Father Heart disease [id number] Not available 11/25/2022 04:43:49 Paternal Grandfather Diabetes mellitus [id number] Not available 11/25/2022 04:43:49 Medical History Condition Response NERVE DISEASE N BLINDNESS N RHEUMATIC FEVER N KIDNEY STONES N BLADDER PROBLEMS N MRSA N OTHER # 1 N POLIO N LUNG DISEASE/DISORDER N HISTORY OF DRUG ABUSE N RADIATION / CHEMOTHERAPY N COPD N Other # 2 N BLOOD DISEASES N EAR OR HEARING PROBLEMS N MUMPS N DEPRESSION (INCLUDING POST ) N BOWEL PROBLEMS N STROKE/TIA N ULCERS N BENIGN PROSTATIC HYPERPLASIA N MEASLES N MYOCARDIAL INFARCTION N OBESITY N GERD/NAUSEA N ANEURYSM N URINARY/BLADDER/KIDNEY PROBLEMS N CORONARY ARTERY DISEASE (CAD) N ADDICTION CONCERNS N Impotence N ENDOMETRIOSIS N USE OF BLOOD THINNERS N SKIN PROBLEMS N GASTROINTESTINAL DISORDER N PERIPHERAL VASCULAR DISEASE N MUSCLE,JOINT OR BONE PROBLEMS N GASTROINTESTINAL BLEEDING N BLOOD CLOTS N ASTHMA Y CATARACTS N ERECTILE DYSFUNCTION Y VARICOSITIES N GI PROBLEMS N Low Testosterone N INFERTILITY N AIDS/HIV N CHEMOTHERAPY / RADIATION N LIVER DISEASE N MALE HYPOGONADISM N HYPERTENSION N Deficiency Y TOURETTE'S N ANXIETY DISORDER N BLOOD TRANSFUSION N ANEMIA/BLOOD DISORDER N CHRONIC EAR INFECTIONS N BRONCHITIS N TUBERCULOSIS N GLAUCOMA N FOOT PROBLEM N DIVERTICULITIS N SLEEP APNEA N CHICKENPOX N INFECTIOUS DISEASE N PROSTATE N HEART ARRHYTHMIA N INSOMNIA Y HIGH CHOLESTEROL / HYPERLIPIDEMIA Y EYE PROBLEMS N HYPERTHYROIDISM N EDEMA N CHRONIC PAIN SYNDROME N HYPOTHYROIDISM N CAROTID BLOCKAGE N CONSTIPATION N BACK / NECK PROBLEMS N ATHEROSCLEROSIS N BREAST PROBLEMS N DIALYSIS N ECZEMA N OSTEOPOROSIS N ARTHRITIS N APPENDICITIS N DIABETES, TYPE N BAD TEETH N ENT N HEARTBURN / REFLUX N AUTISM SPECTRUM DISORDER (ASD) N HEPATITIS / LIVER DISEASE N GOUT N SLEEP DISORDER N ALZHEIMER'S DISEASE N Brain Problems N DEMENTIA N HERPES N SEIZURES/EPILEPSY N HEADACHES/MIGRAINES N VASCULAR DISEASE N PACEMAKER N Blood Disorder N DIZZINESS N HEART DISEASE/HEART PROBLEMS N KIDNEY DISEASE N MULTIPLE SCLEROSIS N CANCER: SPECIFY N CARDIAC ARRHYTHMIA N ATRIAL FIBRILLATION N Gall Stones N PULMONARY EMBOLISM N AUTOIMMUNE DISEASE N Immunizations Vaccine Type Date Status Note Provider Nam e and Address Organization Details Recorded Time COVID-19, mRNA, LNP-S, PF, 100 mcg/0.5mL dose or 50 mcg/0.25mL dose 2 completed Not Available [facility] 11/25/2022 05:03:54 SARS-COV-2 (COVID-19) vaccine, UNSPECIFIED 1 completed Not Available [facility] 11/25/2022 05:03:54 SARS-COV-2 (COVID-19) vaccine, UNSPECIFIED 0 completed Not Available [facility] 11/25/2022 05:03:55 COVID-19, mRNA, LNP-S, bivalent, PF, 50 mcg/0.5 mL or 25mcg/0.25 mL dose 2 completed Not Available [facility] hospital 11/25/2022 05:03:55 Tdap 0 completed Not Available [facility] 11/25/2022 05:03:55 Influenza, split virus, quadrivalent, preservative 0 completed Not Available [facility] hospital 11/25/2022 05:03:55 pneumococcal polysaccharide PPV23 0 completed Not Available [facility] access hospital 11/25/2022 05:03:55 Influenza, split virus, quadrivalent, preservative 9 completed Not Available [facility] access hospital 11/25/2022 05:03:55 Influenza, split virus, quadrivalent, PF 2 completed Not Available Critical access hospital 11/25/2022 05:03:55 Past Encounters Encounter ID Performer Location Encounter Start Date Encounter Closed Date Diagnosis/Indication Diagnosis SNOMED-CT Code Diagnosis ICD10 Code Diagnosis Note [id number] [facility] [address] [address] 02/27/2021 00:00:00 02/27/2021 09:48:38 [id number] [facility] [address] [facility] [address] [place] [address] 07/01/2021 00:00:00 07/01/2021 09:36:41 [id number] [facility] [facility] [address] [place] [address] 10/21/2021 00:00:00 10/21/2021 10:18:38 [id number] S_[facility] Internal Med [facility] [address] [facility] 15 [place] [address] 07/07/2022 00:00:00 08/03/2022 10:51:02 [id number] [facility] [place] [address] [place] [address] 07/21/2022 00:00:00 07/21/2022 16:59:00 [id number] Theodore baker MD S_[facility] Internal Med Carole jacobs [address] [place] [address] 03/10/2023 08:57:58 03/10/2023 09:29:23 Screening - NAD [id number] Z13.9 As per his hx he has got the flu shot, Tdap, PCV #23, and the COVID 19 vaccine RTC in 6 months as per his wishesDo labsER if worseHe did verbalize his understand ing of the above Hyperlipidemia 16962769 E78.5 On atorvastat in, get labs Eruption [id number] R21 C/o severe itching in the anal and the scrotum since 'years'El s have a pruritic rash noted on the anal and perianal area and the scrotum but not very extensiveS tart on the nystatin triamcinol one creamNotif y if not better, may need to see derm then OV 02/27/2021 :Does well nowHe would like to get an apt with dermatolog y as he wants to get a general skin care check up, will refer OV 07/01/2021 :Did not see dermReferr ed again, no acute complaints today OV 10/21/2021 :Has a persisting rash in the groin, did not keep the derm apt, will refer again OV 07/07/2022 :Get to see dermatolog y OV 03/10/2023 :Does well, did see Dr Joy, will renew the tacrolimus as per his request Vitamin D deficiency 347 75442 E55.9 On vit d weeklyGet labs Erectile dysfunction 860 102736 F52.21 C/o unable to get or maintain an erectionOn viagra, prescribed 10/21/2021 Ex-cigarette smoker 2810 14585 Z87.891 [place] AAA at age 63 years Does wellNo complaints Persistent insomnia 1919 26118 G47.09 On trazodone, not working, will start on ambien, all side effects explained to him Sleep hygiene explainedA dvised not to take benadryl Pain of right wrist [address] Akins 07/21/2022 , given braces for flaco CTS and also seen for lateral epicondyli tis of R humerus [id number] Theodore baker MD S_[facility] Internal Med [facility] [address] [facility], [facility] 15 [place] [address] 09/07/2023 09:10:02 09/07/2023 09:29:35 Screening - NAD [id number] Z13.9 Get flu shot, Tdap, COVID 19 vaccine RTC in 6 months as per his wishesDo labsER if worseHe did verbalize his understand ing of the above Hyperlipidemia 37452799 E78.5 On atorvastat in, get labs Eruption [id number] R21 C/o severe itching in the anal and the scrotum since 'years'Le s have a pruritic rash noted on the anal and perianal area and the scrotum but not very extensiveS tart on the nystatin triamcinol one creamNotif y if not better, may need to see derm then OV 02/27/2021 :Does well nowHe would like to get an apt with dermatolog y as he wants to get a general skin care check up, will refer OV 07/01/2021 :Did not see dermReferr ed again, no acute complaints today OV 10/21/2021 :Has a persisting rash in the groin, did not keep the derm apt, will refer again OV 07/07/2022 :Get to see dermatolog y OV 03/10/2023 :Does well, did see Dr Joy, will renew the tacrolimus as per his request OV 09/07/2023 : Keep apt with the dermatolog ist, will refill his tacrolimus as per his wishes, but this will be last refill as he must see dermatolog y Vitamin D deficiency 347 43725 E55.9 On vit d weeklyGet labs Erectile dysfunction 860 570031 F52.21 C/o unable to get or maintain an erectionOn viagra, prescribed 10/21/2021 Ex-cigarette smoker 2810 11403 Z87.891 [place] AAA at age 63 years Does wellNo complaints Persistent insomnia 1919 14715 G47.09 On trazodone, not working, will start on ambien, all side effects explained to him Sleep hygiene explainedA dvised not to take benadryl Pain of right wrist [address] Akins 07/21/2022 , given braces for flaco CTS and also seen for lateral epicondyli tis of R humerus [id number] Theodore baker MD [facility] Internal Med [facility] [address] [facility], [facility] 15 [place] [address] 03/14/2024 09:30:05 03/14/2024 10:34:31 Screening - NAD 253882287 Z13.9 Get flu shot, Tdap, COVID 19 vaccine RTC in 6 months as per his wishesDo labsER if worseHe did verbalize his understand ing of the above Hyperlipidemia 46118078 E78.5 On atorvastat in, get labs Eruption [id number] R21 C/o severe itching in the anal and the scrotum since 'years'Le s have a pruritic rash noted on the anal and perianal area and the scrotum but not very extensiveS tart on the nystatin triamcinol one creamNotif y if not better, may need to see derm then OV 02/27/2021 :Does well nowHe would like to get an apt with dermatolog y as he wants to get a general skin care check up, will refer OV 07/01/2021 :Did not see dermReferr ed again, no acute complaints today OV 10/21/2021 :Has a persisting rash in the groin, did not keep the derm apt, will refer again OV 07/07/2022 :Get to see dermatolog y OV 03/10/2023 :Does well, did see Dr Joy, will renew the tacrolimus as per his request OV 09/07/2023 : Keep apt with the dermatolog ist, will refill his tacrolimus as per his wishes, but this will be last refill as he must see dermatolog y OV 03/14/2024 : Referred again Vitamin D deficiency 347 22070 E55.9 On vit d weeklyGet labs Erectile dysfunction 860 596251 F52.21 C/o unable to get or maintain an erectionOn viagra, prescribed 10/21/2021 Ex-cigarette smoker 2810 47747 Z87.891 [place] AAA at age 63 years Does wellNo complaints Persistent insomnia 1919 57448 G47.09 On trazodone, not working, will start on ambien, all side effects explained to him Sleep hygiene explainedA dvised not to take benadryl Pain of right wrist [address] Akins 07/21/2022 , given braces for flaco CTS and also seen for lateral epicondyli tis of R humerus Upper resp iratory infection 00410109 J06.9 Get rapid strep, flu and COVID 19 testGet on augmentinO ff work till tests are reported as he works in a [employer] Hyperglycemia 59003645 R 73.9 Get labs Health Concerns Section Related Observation LastModified by Organization Detai ls LastModified Time None Recorded Concern Status LastModified by Organization Details LastModified Time None Recorded Advance Directives Directive N: Payers Encounter Date Sequence Insurance Name Policy Number Policy South Covered Member ID South Member ID Guarantor Name 03/10/2023 1 [place] [id number] Stan Morales Willmore [id number] Stan Willmore 09/07/2023 1 [place] [id number] Stan Morales Willaltaf [id number] Stan Willmore 03/14/2024 1 [place] [id number] Stan Morales Willmore [id number] Stan Willmore Notes Date Note Type Note Provider Name and Address Organization Details Recorded Time 03/10/2023 text/html OV 11/05/2020:He re to establish carePast Hx:CellulitisInguinal herniaEx-smokerReview ed social family and surgical historyHere to establish care and to get labsHe is doing very well, just wants to establish care for his wellness visitHe states that he does have itching in the anal area and the scrotum since many yearsOV 02/27/2021:Here for his routine aptHe is now on the atorvastatin dailyHe feels that the skin rash in the scrotum is resolved for now, but if he does not use the cream it comes back, he would like to see a dermatologistHe also c/o insomina, has been using benadryl 75mg every night and melatonin 10mg with it, wants to take trazodoneNo other complaintsNo labs recentlyOV 07/01/2021:Here for his routine aptHe feels wellWas seen in ER for lower abd wall pain 2 weeks ago, now completely resolvedHe did do the labsOV 10/21/2021:Here for his routine aptHe is doing wellNo recent labsOV 07/07/2022:Here for his f/u apt, no new labs, c/o insomnia OV 03/10/2023: Here for his f/u apt, he feels well, no new labs Theodore Siddiqui MD [address], [facility] [address], [place], [address], [facility] [place] 03/10/2023 09:30:56 09/07/2023 text/html OV 11/05/2020:He re to establish carePast Hx:CellulitisInguinal herniaEx-[facility]Ad[facility] ed social family and surgical historyHere to establish care and to get labsHe is doing very well, just wants to establish care for his wellness visitHe states that he does have itching in the anal area and the scrotum since many yearsOV 02/27/2021:Here for his routine aptHe is now on the atorvastatin dailyHe feels that the skin rash in the scrotum is resolved for now, but if he does not use the cream it comes back, he would like to see a dermatologistHe also c/o insomina, has been using benadryl 75mg every night and melatonin 10mg with it, wants to take trazodoneNo other complaintsNo labs recentlyOV 07/01/2021:Here for his routine aptHe feels wellWas seen in ER for lower abd wall pain 2 weeks ago, now completely resolvedHe did do the labsOV 10/21/2021:Here for his routine aptHe is doing wellNo recent labsOV 07/07/2022:Here for his f/u apt, no new labs, c/o insomnia OV 03/10/2023: Here for his f/u apt, he feels well, no new labs OV 09/07/2023: Here for his f/u apt, he is doing well today Theodore Siddiqui MD [address], [address], [place], [address], [facility] 09/07/2023 09:31:08 03/14/2024 text/html OV 11/05/2020:He re to establish carePast Hx:CellulitisInguinal herniaEx-smokerReview ed social family and surgical historyHere to establish care and to get labsHe is doing very well, just wants to establish care for his wellness visitHe states that he does have itching in the anal area and the scrotum since many yearsOV 02/27/2021:Here for his routine aptHe is now on the atorvastatin dailyHe feels that the skin rash in the scrotum is resolved for now, but if he does not use the cream it comes back, he would like to see a dermatologistHe also c/o insomina, has been using benadryl 75mg every night and melatonin 10mg with it, wants to take trazodoneNo other complaintsNo labs recentlyOV 07/01/2021:Here for his routine aptHe feels wellWas seen in ER for lower abd wall pain 2 weeks ago, now completely resolvedHe did do the labsOV 10/21/2021:Here for his routine aptHe is doing wellNo recent labsOV 07/07/2022:Here for his f/u apt, no new labs, c/o insomnia OV 03/10/2023: Here for his f/u apt, he feels well, no new labs OV 09/07/2023: Here for his f/u apt, he is doing well today OV 03/14/2024: Here for his f/u atp, he is doing well, he does not have any labs Theodore Siddiqui MD [address], [facility] [address], [place], [address], [facility] 03/14/2024 10:37:05
--- OUTSIDE RECORDS SUMMARY | 2024-10-22 16:29 | XMS_ITS | Patient Health Record ---
Author Organization [facility] Address [address] [place] [address] Care Team Providers Care Sales Porter Name Role Phone Pola Henley Primary Care Provider Reason For Referral No Information Immunizations Vaccine Route Administration Date Status Comme nts COVID-19 Moderna 1ST IM Intramuscular 09/26/2020 Administered EUA provided. Screening reviewed and consent signed. Pt tolerated well. COVID-19 Moderna 1ST IM Intramuscular 10/24/2020 Administered EUA provided. screening and consent reviewed and signed. Pt tolerated well. Plan Of Treatment No Information Insurance Providers Payer Name Payer Address Payer Phone Subscriber Number Group Number Insured Name Patient Relationship to Insured Coverage Start Date Coverage End Date [facility] [address] [place] [address] [id number] Stan Berry Self - patient is the insured 0
--- OUTSIDE RECORDS SUMMARY | 2024-10-22 16:29 | XMS_ITS | Patient Health Summary ---
Author Organization [facility] Address [address] [address] Care Team Providers Care Grounds And Nursery Specialist Name Role Phone Unavailable Primary Care Provider Unavailabl e Note from [facility],non-owned Affiliates and Associated Physician Practices is amultiple site organization consisting of ambulatory clinics and hospital sitesin [place], [place], [place] and [place]. This disclosure is being madepursuant to the Care Everywhere program and may not contain all information available regarding this patient. Last updated 18.[facility] Social History Tobacco Use Types Packs/Day Years Used Date Smoking Tobacco: Never Assessed Sex and Gender Information Value Date Recorded Sex Assigned at Not on file Gender Identity Not on file Sexual Orientation Not on file Procedures * SARS-COV-2 (COVID-19) IN HOUSE(Performed 04/27/2020) Performed for Exposure to viral disease Results * SARS-COV-2 (COVID-19) [facility] (04/27/2020 1:03 PM CDT) COVID-19 PCR Not detected Not detected, Invalid 04/28/2020 8:06 PM CDT [facility]CRO[facility] Microbiology SPECIMEN FROM NASOPHARYNGEAL STRUCTURE / Unknown Collection / Unknown 04/27/2020 1:03 PM CDT 04/27/2020 1:03 PM CDT Narrative [facility] - 04/28/2020 8:06 PM CDT This Real Time RT-PCR assay was developed and its performance characteristics determined by [facility]. This test has been authorized by the Food and Drug administration (FDA)under an Emergency Use Authorization (EUA). This test has been validated in accordance with the FDA's guidance document Policy for Diagnostic Testing in Laboratories Certified to perform High Complexity Testing under CLIA prior to Emergency Use Authorization for Coronavirus Disease-2019 during the Public Health Emergency issued on November 25, 2019. FDA independent review of this validation is pending. This test is only authorized for the duration of time the declaration that circumstances exist justifying the authorization of emergency use of in vitro diagnostic tests for detection of SARS-CoV-2 virus and/or diagnosis of COVID-19 infection under section 564(b)(1) of the Act, 21 U.S.C 360bbb-3 (b)(1), unless the authorization is terminated or revoked sooner. Nereida Teague APRN-EGG SMELLER LAB - MICROBIOLO GY ORDERABLES [facility]CRO[facility] [address] [place], [place] [address], [facility] [phone]
[2024-10-22 16:33] VITALS: BP 123/89; PULSE 74; RESP 16; TEMP 36.6; O2SAT 98
[2024-10-22 16:50] LABS: Basophils Percent Auto 0.4 % (0.2-1.2); Eosinophils Absolute Auto 0.2 K/mm3 (0-0.3); Eosinophils Percent Auto 3.6 % (0-4.4); Hematocrit 41.5 % (42.0-52.0); Hemoglobin 13.9 g/dL (14.0-18.0); Immature Granulocyte Absolute 0.03 K/mm3 (0.00-0.031); Immature Granulocyte Percent A 0.6 % (0-0.5); Lymphocytes Absolute Auto 1.35 K/mm3 (0.9-3.2); Mean Corpuscular HGB Conc 33.5 g/dl (32-36); Mean Corpuscular Volume 92.4 fl (80-100); Monocytes Absolute Auto 0.7 K/mm3 (0.1-0.6); Monocytes Percent Auto 14.4 % (2.6-8.5); Neutrophils Absolute Auto 2.7 K/mm3 (1.3-6.7); Platelet Count Result 226 k/mm3 (150-375); Red Blood Count 4.49 M/mm3 (4.6-6.20); Red Cell Distribution Width 11.9 % (11.5-14.5)
[2024-10-22 17:02] LABS: Alanine Aminotransferase 27 U/L (6-50); Albumin Level 4.3 g/dL (3.5-5.1); Alkaline Phosphatase 65 U/L (38-126); Anion Gap 9 mmol/L (4-12); Aspartate Amino Transferase 33 U/L (17-59); Bilirubin,Total 0.4 mg/dL (0.2-1.3); Blood Urea Nitrogen 19 mg/dL (9-20); Calcium 9.7 mg/dL (8.4-10.2); Carbon Dioxide 30 mmol/L (22-30); Chloride 99 mmol/L (98-107); Estimated CRCL calculation 117 ml/min; Estimated Glomerular Filt Rate > 60; Glucose 95 mg/dL (65-110); Lipase 69 U/L (23-300); Potassium 4.2 mmol/L (3.4-5.0); Prothrombin Time 13.5 Seconds (11.1-14.7); Sodium 138 mmol/L (137-145)
[2024-10-22 17:03] LABS: Partial Thromboplastin Time 29.1 Seconds (22.3-36.8)
[2024-10-22 17:12] LABS: Troponin I < 0.012 ng/mL (0.000-0.034)
[2024-10-22 18:27] VITALS: O2SAT 98
--- OUTSIDE RECORDS SUMMARY | 2024-10-22 18:35 | XMS_ITS | Continuity of Care Document ---
Author Organization [facility] Address [address] [place] [address] Phone Care Team Providers Care Manager University Name Role Phone Conversion MD, Doctor Unavailable [...] Diagnoses Date Provider Providers Copied on Encounter [employer], [address], [place], [place], [id number], tel:[phone] Conversion Department No Information 4201 1 Conversion Doctor. [address] [place] [address], [facility], . [employer], [address], [place], [place], [id number], tel:[phone] [facility] NOS [phone] Conversion Doctor. [address] [place] [address], [facility], . Family History Family Member Type Diagnosis Age At Onset No Information Immunizations Vaccine Date Status Comments 04346 - Hepatitis_B administered Source: Source Unspecified [address]10 - Hepatitis_B administered Source: Source Unspecified Payers Payer name Insurance type Covered alliance party ID Authoriza tion(s) No Information Social [...]
--- OUTSIDE RECORDS SUMMARY | 2024-10-22 18:35 | XMS_ITS | Clinical Summary ---
Author Organization [facility] Address [address] [place] [address] Care Team Providers Care Training Analyst Name Role Phone Unavailable Primary Care Provider Unavailabl e Source Comments [facility],non-owned Affiliates and Associated Physician Practices is amultiple site organization consisting of ambulatory clinics and hospital sitesin [place], [place], [place] and [place]. This disclosure is being madepursuant to the Care Everywhere program and may not contain all information available regarding this patient. Last updated 18.[facility] Social History Tobacco Use Types Packs/Day Years [...]
--- OUTSIDE RECORDS SUMMARY | 2024-10-22 18:35 | XMS_ITS | Referral Summary ---
Author Organization [facility] [employer] Address [address] [place] [address] Care Team Providers Care Group Account Director Name Role Phone Unavailable Primary Care Provider Unavailabl e Source Comments [facility],non-owned Affiliates and Associated Physician Practices is amultiple site organization consisting of ambulatory clinics and hospital sitesin [place], [place] and [place]. This disclosure is being madepursuant to the Care Everywhere program and may not contain all information available regarding this patient. Last updated 18.[facility] [employer] Social History Tobacco Use Types Packs/Day Years Used Date Smoking Tobacco: Never Assessed Sex and Gender Information Value Date Recorded Sex Assigned at Not on file Gender Identity Not on file Sexual Orientation Not on file Plan of Treatment Not on file
--- OUTSIDE RECORDS SUMMARY | 2024-10-22 18:35 | XMS_ITS | Patient Health Summary ---
Author Organization [facility] Address [address] [place] [address] Care Team Providers Care Railway Patrol Officer Name Role Phone Unavailable Primary Care Provider Unavailabl e Note from [facility],non-owned Affiliates and Associated Physician Practices is amultiple site organization consisting of ambulatory clinics and hospital sitesin [place], [place], [place]. This disclosure is being madepursuant to the Care Everywhere program and may not contain all information available regarding this patient. Last updated 18.[facility] Social History Tobacco Use Types Packs/Day Years Used Date Smoking Tobacco: Never Assessed Sex and Gender Information Value Date Recorded Sex Assigned at Not on file Gender Identity Not on file Sexual Orientation Not on file Procedures * SARS-COV-2 (COVID-19) IN HOUSE(Performed 04/27/2020) Performed for Exposure to viral disease Results * SARS-COV-2 (COVID-19) [facility] MICRO (04/27/2020 1:03 PM CDT) COVID-19 PCR Not detected Not detected, Invalid 04/28/2020 8:[address] [facility]CRO[facility] Microbiology SPECIMEN FROM NASOPHARYNGEAL STRUCTURE / Unknown Collection / Unknown 04/27/2020 1:03 PM CDT 04/27/2020 1:[address] [facility] - 04/28/2020 8:06 PM CDT This Real Time RT-PCR assay was developed and its performance characteristics determined by [facility]. This test has been authorized [...] is terminated or revoked sooner. Nereida Teague APRN-YARDING ENGINEER LAB - MICROBIOLO GY ORDERABLES [facility] [address] [place], [place] [address], [facility] [phone]
--- NOTE | 2024-10-22 19:28 | ED_ITS ---
HPI - Chest Pain General Chief Complaint: Chest Pain Stated Complaint: covid +, chest pain Time Seen by Provider: 10/22/24 18:28 History of Present Illness HPI narrative: Patient tested positive for COVID last night, he has had a runny nose, cough, congestion and sensation of chest tightness. Related Data Home Medications ?Medication ?Instructions ?Recorded ?Confirmed ?Last Taken ?Type Adults Multivitamin 06/19/21 06/19/21 Unknown History atorvastatin 40 mg tablet 40 mg PO DAILY 06/19/21 Unknown History trazodone 50 mg tablet 50 mg PO HS 06/19/21 Unknown History tacrolimus 0.1 % topical ointment topical 12/18/21 12/18/21 Unknown History Allergies Allergy/AdvReac Type Severity Reaction Status Date / Time No Known Allergies Allergy Unknown Verified 12/18/21 14:50 Review of Systems 2 Review of Systems: All systems reviewed & are unremarkable except as noted in HPI and below Exam 2 Narrative: EXAMINATION OF ORGAN SYSTEMS/BODY AREAS: Constitutional: Vital signs per nursing GENERAL:[No acute distress, non-toxic appearing.] HEAD: Normal with no signs of head trauma. EYES: EOMI, conjunctiva normal ENT: Hearing grossly intact LUNGS: Nonlabored breathing. Clear to auscultation bilaterally HEART: [Regular rate and rhythm] ABD: [Soft], [nontender to palpation] EXT: Normal range of motion SKIN: [No rashes or lesions.] NEURO: [Alert and oriented x 3. No gross focal sensory or strength deficits.] PSYCH: Normal affect Course Vital Signs Vital signs: Vital Signs Temperature 98 F 10/22/24 16:33 Pulse Rate 74 10/22/24 16:33 Respiratory Rate 16 10/22/24 16:33 Blood Pressure 123/89 10/22/24 16:33 Pulse Oximetry 98 10/22/24 16:33 Oxygen Delivery Room Air 10/22/24 16:33 Temperature 98 F 10/22/24 16:33 Pulse Rate 74 10/22/24 16:33 Respiratory Rate 16 10/22/24 16:33 Blood Pressure 123/89 10/22/24 16:33 Pulse Oximetry 98 10/22/24 18:27 Oxygen Delivery Room Air 10/22/24 18:27 MDM - Chest Pain MDM Narrative Medical decision making narrative: ED COURSE AND MEDICAL DECISION MAKINM presenting with chest pain. EKG done in triage negative for acute ischemic changes. Cardiac workup is initiated. EKG: Performed in triage and interpreted by me. Normal sinus rhythm. Rate 69. Normal axis. [place] normal. QRS duration normal. QTc normal. No pathologic Q waves. No ST segment elevation or depression to suggest acute ischemia. No RV strain pattern. HEART score is 0 with no acute ischemic changes on EKG and negative troponin making ACS unlikely. Wells low risk with negative PERC making PE unlikely. Presentation not consistent with dissection or aneurysm without radiation of pain or pulse deficits. CXR negative for mediastinal widening. No abdominal pain or signs of sepsis that would be concerning for esophageal perforation or mediastinitis. No cardiomegaly or JVD to suggest pericardial effusion/tamponade. HEART Score: [0]. (Risk of major adverse cardiac events over 6 weeks: Score of 0-3 is low risk <2% ; Score of 4-6 is moderate risk ~12-15%; Score of 7-12 is high risk ~50%). - History - [0]. (Not suspicious 0; moderately suspicious 1; highly suspicious 2). - EKG - [0]. (No ST changes 0; non-specific ST/T changes 1; ST depression 2). - Age - [0]. (<45 = 0; 46-65 = 1; >65 = 2). - Risk factors - [0]. (0 factors = 0; 1-2 factors = 1; >2 factors = 2). - Troponin - [0]. (Normal = 0; Indeterminate = 1; High = 2). \ On repeat evaluation just prior to discharge, the patient is no acute distress. I had a long discussion with the patient and with shared decision making, [he] is comfortable with outpatient management. [He] was given clear return instructions by myself in person as well as on discharge paperwork. Procedures: Pulse oximetry interpretation - not hypoxic. EKG interpretation. Review of medical records. Lab Data 10/22/24 16:43 10/22/24 16:43 Labs: Lab Results 10/22/24 Range/Units 16:43 WBC 5.0 (4.5-10.0) K/mm3 RBC 4.49 L (4.6-6.20) M/mm3 Hgb 13.9 L (14.0-18.0) g/dL Hct 41.5 L (42.0-52.0) % MCV 92.4 (80-100) fl MCH 31.0 (26-34) pg MCHC 33.5 (32-36) g/dl RDW 11.9 (11.5-14.5) % Plt Count 226 (150-375) k/mm3 MPV 9.0 (7.4-10.4) fl Immature Gran % (Auto) 0.6 H (0-0.5) % Neut % (Auto) 54.0 (45.5-73.1) % Lymph % (Auto) 27.0 (18.3-44.2) % [place] % (Auto) 14.4 H (2.6-8.5) % Eos % (Auto) 3.6 (0-4.4) % Baso % (Auto) 0.4 (0.2-1.2) % Lymph # (Auto) 1.35 (0.9-3.2) K/mm3 [place] # (Auto) 0.7 H (0.1-0.6) K/mm3 Eos # (Auto) 0.2 (0-0.3) K/mm3 Baso # (Auto) 0.0 (0.0-0.1) K/mm3 Abs Immat Gran (auto) 0.03 (0.00-0.031) K/mm3 Absolute Neuts (auto) 2.7 (1.3-6.7) K/mm3 Absolute Nucleated RBC 0.000 (0.0-0.012) K/mm3 Nucleated RBC % 0.0 (0.0-0.2) % PT 13.5 (11.1-14.7) Seconds INR 1.0 APTT 29.1 (22.3-36.8) Seconds Sodium 138 (137-145) mmol/L Potassium 4.2 (3.4-5.0) mmol/L Chloride 99 (98-107) mmol/L Carbon Dioxide 30 (22-30) mmol/L Anion Gap 9 (4-12) mmol/L BUN 19 (9-20) mg/dL Creatinine 0.87 (0.7-1.3) mg/dL Estim Creat Clear Calc 117 ml/min Estimated GFR > 60 (59 - ) Glucose 95 (65-110) mg/dL Calcium 9.7 (8.4-10.2) mg/dL Total Bilirubin 0.4 (0.2-1.3) mg/dL AST 33 (17-59) U/L ALT 27 (6-50) U/L Alkaline Phosphatase 65 (38-126) U/L Troponin I < 0.012 (0.000-0.034) ng/mL Total Protein 7.0 (6.3-8.2) g/dL Albumin 4.3 (3.5-5.1) g/dL Lipase 69 (23-300) U/L Discharge Plan Discharge Clinical Impression: Atypical chest pain, COVID-19 Patient Disposition: Home, Self-Care Condition: Stable Instructions: Chest Pain (ED), COVID-19 (Coronavirus Disease 2019) (ED) Additional Instructions: Please follow up with your doctor; you can always return for any further issues. Patient Language: Telugu Prescriptions: New acetaminophen [Tylenol Extra Strength] 500 mg tablet 1,000 mg PO Q6H PRN (Reason: pain) Qty: 50 0RF ibuprofen 600 mg tablet 600 mg PO TID PRN (Reason: fever or pain) Qty: 30 0RF fluticasone propionate [Allergy Relief (fluticasone)] 50 mcg/actuation spray,suspension 1 spray intranasal DAILY Qty: 16 0RF Rx Instructions: administer into each nostril No Action Adults Multivitamin atorvastatin 40 mg Tablet 40 mg PO DAILY trazodone 50 mg Tablet 50 mg PO HS tacrolimus 0.1 % ointment TOPICAL amoxicillin-pot clavulanate 875-125 mg tablet 1 tablet PO Q12H 10 Days Qty: 20 0RF albuterol sulfate 90 mcg/actuation HFA aerosol inhaler 2 puff inhalation Q4H PRN (Reason: shortness of breath or wheezing) Qty: 8.5 0RF prednisone 20 mg tablet 40 mg PO DAILY 5 Days Qty: 10 0RF benzonatate 200 mg capsule 200 mg PO TID PRN (Reason: cough) Qty: 20 0RF Follow-up/Referrals: Artur,MD Theodore [Primary Care Provider] - 2 Days
== END 2024-10-22 18:59 | disposition home or self-care (01) ==
PROVIDERS: Emergency Medicine; Emergency Provider Emergency Medicine; PCP Internal Medicine
DX: U07.1 COVID-19 (principal); R07.89 Other chest pain
CPT/HCPCS: 36415; 71046; 80053; 83690; 84484; 85025; 85610; 85730; 93005; 99284